=== PATIENT | female | born 1995 | race Caucasian/White ===

== ENCOUNTER 2016-12-27 15:31 | Emergency (ER) | payer MEDICAID, OTHER ==
[~2016-12-27] VITALS: Ht 165.1 cm; Wt 59.0 kg
[2016-12-27 16:00] VITALS: BP 130/79
[2016-12-27] MEDS ORDERED: LORazepam 0.5 MG TAB ONE (17:00)
[2016-12-27] MEDS ORDERED: LORazepam 0.5 MG TAB PO ONE (17:15)
== END 2016-12-27 18:07 | disposition left against medical advice (07) ==
LOC: ER 15:37
DX: F41.0 Panic disorder [episodic paroxysmal anxiety] (principal); Z53.21 Procedure and treatment not carried out due to patient leaving prior to being seen by health care provider